=== PATIENT | male | born 1980 | race Caucasian/White ===

== ENCOUNTER 2021-07-30 09:33 | Emergency (ER) | payer SELFPAY ==
[~2021-07-30] VITALS: Ht 190.5 cm; Wt 108.9 kg
[2021-07-30 09:33] VITALS: BP_SYST 138
--- NOTE | 2021-07-30 09:33 | NUR ---
TRIAGED IN AMBULANCE, AWAITING ER BED.
--- NOTE | 2021-07-30 09:48 | NUR ---
BROUGHT IN BY [facility], PLACED IN AMBULANCE BAY AND TRIAGED. PT IS HERE FOR OK TO BOOK BUT STATES THAT HE HAS COVID LIKE SYMPTOMS. COVID SWAB SENT AND AWAITING RESULTS
--- NOTE | 2021-07-30 10:39 | NUR ---
Patient given written and verbal discharge instructions and verbalizes understanding. ER MD discussed with patient the results and treatment provided. Patient in stable condition. ID arm band removed. Rx of NONE given. Patient educated on pain management and to follow up with PMD. Pain Scale 0/10. Opportunity for questions provided and answered. Medication side effect fact sheet provided.
== END 2021-07-30 10:39 ==
LOC: SED 09:33
DX: J06.9 Acute upper respiratory infection, unspecified (principal); Z20.822 Contact with and (suspected) exposure to COVID-19
CPT/HCPCS: 36415; 99283